=== PATIENT | female | born 1950 | race Two or more races ===

== ENCOUNTER → 2018-05-04 | Outpatient (CLI) | payer MEDICARE, MEDICAID | LOC: CVU 09:52 | PROVIDERS: ATTEND Family Medicine | DX: I83.813 Varicose veins of bilateral lower extremities with pain (principal) | CPT/HCPCS: 93970 ==

== ENCOUNTER 2020-07-12 21:38 | Emergency (ER) | payer MEDICARE, MEDICAID ==
[~2020-07-12] VITALS: Ht 157.5 cm; Wt 81.8 kg
[~2020-07-12 21:38] MED LIST: ANTIDEPRESSANT PO; DIAZ5TAB PO; NAPR-685 PO
[2020-07-12 21:49] VITALS: BP 173/156
--- NOTE | 2020-07-12 22:00 | NUR ---
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 PT HERE WITH NON-VERBAL PT W A LEARNING DISABILITY WHO NEEDS TO BE SEEN FOR RESPIRATORY S/S. PT AGREES TO BE SEEN AFTER OTHER PT HAS BEEN TREATED.
[2020-07-13] MEDS ORDERED: ACETAMINOPHEN 325 MG TABLET PO ONE (00:30)
[2020-07-13] MEDS ORDERED: ACETAMINOPHEN 325 MG TABLET ONE (01:12)
--- NOTE | 2020-07-13 01:21 | NUR ---
PT BEING SEEN BY RN AT THIS TIME. PT STATES SHE IS HAVING A HARD TIME URINATING AND THAT IT MOSES WHEN SHE PEES. PT NOW ALSO HAVING PAIN IN BACK OF HEAD. PT MEDICATED PER MAR FOR PAIN. PT HAS HX OF URINARY TRACT INFECTIONS. NAD, VSS, WCTM. PT PLACED ON SPO2/BP MONITORING. CALL LIGHT ON LAP.
[2020-07-13 01:38] LABS: MICROSCOPIC NOT IND
--- NOTE | 2020-07-13 01:55 | NUR ---
Patient given discharge instructions and they have confirmed that they understand the instructions. Patient ambulatory with steady gait. DENIES ADDITIONAL QUESTIONS OR NEEDS AT THIS TIME. NAD, VSS, NO BELONGINGS LEFT IN ROOM AFTER DC. SON LEFT WITH MOM
== END 2020-07-13 01:56 | disposition home or self-care (01) ==
LOC: ED 23:11
DX: B34.9 Viral infection, unspecified (principal); R50.9 Fever, unspecified; Z20.828 Contact with and (suspected) exposure to other viral communicable diseases; Z87.891 Personal history of nicotine dependence
CPT/HCPCS: 36415; 81003; 87635; 99283